=== PATIENT | female | born 1955 | race Two or more races ===

== ENCOUNTER 2023-01-04 06:58 | Inpatient (IN) | payer OTHER ==
[~2023-01-04] VITALS: Ht 167.6 cm; Wt 77.1 kg
[2023-01-04] MEDS ORDERED: SYNTHROID50 MCG PO (14:39)
[2023-01-04] MEDS ORDERED: PRAVASTATIN SOD40 MG PO (14:42)
[2023-01-09] MEDS ORDERED: FLONASE16 GM (08:10)
[2023-01-09] MEDS ORDERED: OMEPRAZOLE20 MG (08:10)
[2023-01-09] MEDS ORDERED: GABAPENTIN400 MG (08:10)
[2023-01-09] MEDS ORDERED: ALENDRONATE SOD70 MG (08:10)
[2023-01-11] MEDS ORDERED: ACETAMINOPHEN500 M2 PO (17:51)
== END 2023-01-11 18:35 | disposition home or self-care (01) | DRG 331 ==
LOC: SURH 01-08 12:00 → O/R 01-08 20:36 → SURG 01-08 20:52
PROVIDERS: ADMIT Surgery; ATTEND Surgery
PROC: 0DBH4ZZ Excision of Cecum, Percutaneous Endoscopic Approach (ICD-10-PCS; principal; 2023-01-09)
DX: C18.1 Malignant neoplasm of appendix (principal); K57.30 Diverticulosis of large intestine without perforation or abscess without bleeding; E03.9 Hypothyroidism, unspecified; Z20.822 Contact with and (suspected) exposure to COVID-19

== ENCOUNTER 2023-02-27 08:45 | Inpatient (IN) | payer OTHER ==
[~2023-02-27] VITALS: Ht 167.6 cm; Wt 74.8 kg
[~2023-02-27 08:45] MED LIST: ACETAMINOPHEN500 M2 PO; ALENDRONATE SOD70 MG; FLONASE16 GM; GABAPENTIN400 MG; OMEPRAZOLE20 MG; PRAVASTATIN SOD40 MG PO; SYNTHROID50 MCG PO
[2023-03-09] MEDS ORDERED: TRAM1TAB98 PO (12:46)
[2023-03-09] MEDS ORDERED: DICY20TA PO (12:47)
[2023-03-09] MEDS ORDERED: PROTONIX40 MG PO (12:47)
== END 2023-03-09 14:04 | disposition home or self-care (01) | DRG 330 ==
LOC: O/R 03-05 05:46 → SURH 03-05 05:46
PROVIDERS: ADMIT Surgery; ATTEND Surgery
PROC: 07BC4ZX Excision of Pelvis Lymphatic, Percutaneous Endoscopic Approach, Diagnostic (ICD-10-PCS; 2023-03-05)
PROC: 0DTF4ZZ Resection of Right Large Intestine, Percutaneous Endoscopic Approach (ICD-10-PCS; principal; 2023-03-05 07:00)
DX: D12.2 Benign neoplasm of ascending colon (principal); C7A.020 Malignant carcinoid tumor of the appendix; R59.0 Localized enlarged lymph nodes; E31.20 Multiple endocrine neoplasia [MEN] syndrome, unspecified